=== PATIENT | female | born 1965 | race Caucasian/White ===

== ENCOUNTER 2023-12-16 11:46 | Inpatient (IN) | payer MEDICAID ==
[2023-12-16 13:35] LABS: BASOPHILS ABSOLUTE AUTO 0.1 K/mm3 (0.0-0.2); BASOPHILS PERCENT AUTO 1.4 % (0.0-1.0); EOSINOPHILS PERCENT AUTO 0.6 % (0.0-6.0); IMMATURE GRAN ABSOLUTE AUTO 0.01 K/mm3 (0.00-0.05); IMMATURE GRAN PERCENT AUTO 0.2 % (0.0-0.4); LYMPHOCYTES ABSOLUTE AUTO 1.4 K/mm3 (1.0-4.8); LYMPHOCYTES PERCENT AUTO 22.1 % (24.0-44.0); MEAN CORPUSCULAR HGB CONC 28.3 g/dl (32.0-36.0); MEAN CORPUSCULAR VOLUME 74.1 fl (83.0-99.0); MEAN PLATELET VOLUME 9.2 fl (9.4-12.3); MONOCYTES ABSOLUTE AUTO 0.8 K/mm3 (0.0-0.8); MONOCYTES PERCENT AUTO 12.4 % (0.0-8.0); NEUTROPHILS PERCENT AUTO 63.3 % (41.0-71.0); PLATELET COUNT,PLT 389 K/mm3 (150-400); RED BLOOD CELL COUNT 3.24 M/mm3 (4.10-5.30); WHITE BLOOD CELL COUNT,WBC 6.28 K/mm3 (3.9-11.3)
[2023-12-16 13:38] LABS: HEMOGLOBIN 6.8 gm/dl (12.0-16.0)
[2023-12-16] MEDS: LORazepam 2 MG/ML SDV IVPUSH ONE ×3 (13:53→14:20)
[2023-12-16] MEDS: Sodium Chloride 0.9% 1,000 ML IV STA (13:53)
[2023-12-16 13:56] LABS: ALBUMIN 3.8 g/dl (3.4-5.0); BILIRUBIN TOTAL 0.6 mg/dL (0.2-1.0); BUN/CREATININE RATIO 17.5 (14-18); CALCIUM 9.8 mg/dL (8.5-10.1); CREATININE 0.8 mg/dL (0.55-1.02); EST CRCL DRUG DOSING (CG) 70.66 mL/min; PROTEIN TOTAL,TP 7.8 g/dl (6.4-8.2)
[2023-12-16] MEDS ORDERED: Pantoprazole 40 MG Vial IVPUSH ONE (14:05)
[2023-12-16 14:08] LABS: SLIDE REVIEW ABNORMAL SMEAR
[2023-12-16] MEDS ORDERED: Ondansetron 4 MG/2 ML SDV IV PRN (14:14)
[2023-12-16] MEDS: Pantoprazole 40 MG Vial IVPUSH ONE (14:15)
[2023-12-16] MEDS: Potassium Chloride 20 MEQ Tab.ER PO ONE (14:16)
[2023-12-16 14:34] LABS: INR 1.02; PROTHROMBIN TIME 10.8 SECONDS (9.7-12.0)
[2023-12-16 14:35] LABS: PTT,PARTIAL THROMBOPLSTIN TIME 21.7 SECONDS (21.7-31.4)
[2023-12-16] MEDS: LORazepam 2 MG/ML SDV IV PRN ×2 (15:57→19:38)
[2023-12-16 17:46] LABS: HEMATOCRIT 24.7 % (37.0-47.0)
[2023-12-16 17:51] LABS: HEMOGLOBIN 6.9 gm/dl (12.0-16.0)
[2023-12-16] MEDS: Folic Acid 1 MG Tab PO SCH (18:58)
[2023-12-16] MEDS: Multivitamin Tab PO SCH (18:58)
[2023-12-16] MEDS: Thiamine 100 MG Tab PO SCH (18:58)
[2023-12-16] MEDS: Sodium Chloride 0.9% 1,000 ML IV SCH (19:29)
[2023-12-16] MEDS: Pantoprazole 40 MG in Sodium Chloride 0.9% 100 ML IV ONE (19:29)
[2023-12-16 21:12] LABS: APPEARANCE,URINE CLEAR (Clear); BILIRUBIN,URINE NEGATIVE (Negative); COLOR,URINE YELLOW (Yellow); GLUCOSE,URINE NEGATIVE (Negative); KETONES,URINE 1+ (Negative); LEUKOCYTE ESTERASE,URINE 1+ (Negative); NITRITE,URINE NEGATIVE (Negative); OCCULT BLOOD,URINE NEGATIVE (Negative); PH,URINE 7.5 (5.0-8.0); PROTEIN,URINE NEGATIVE (Negative); UROBILINOGEN,URINE 0.2 (0.2-1.0)
[2023-12-16 21:22] LABS: BARBITURATE SCREEN,URINE NEGATIVE (CUTOFF=200); BENZODIAZEPINES SCREEN,URINE PRESUMPTIVE POSITIVE (CUTOFF=150); BUPRENORPHINE SCREEN,URINE NEGATIVE (CUTOFF=10); METHADONE SCREEN, URINE NEGATIVE (CUTOFF=200); METHAMPHETAMINES SCREEN, URINE NEGATIVE (CUTOFF=500); OXYCODONE SCREEN,URINE NEGATIVE (CUT0FF=100); THC SCREEN,URINE 20 NG/ML NEGATIVE (CUTOFF=50)
[2023-12-16 21:24] LABS: AMPHETAMINES SCREEN, URINE NEGATIVE (CUTOFF=500)
[2023-12-16 21:34] LABS: BACTERIA,URINE MODERATE /hpf (FEW); MUCUS,URINE FEW /hpf (FEW); RBC,URINE 0-5 /hpf (0-5)
[2023-12-16 21:35] LABS: AMORPHOUS SEDIMENT,URINE FEW /hpf (NOT SEEN)
[2023-12-16 23:06] LABS: HEMATOCRIT 25.4 % (37.0-47.0)
[2023-12-16 23:25] LABS: HEMOGLOBIN 7.1 gm/dl (12.0-16.0)
[2023-12-17 04:37] LABS: BASOPHILS ABSOLUTE AUTO 0.1 K/mm3 (0.0-0.2); EOSINOPHILS ABSOLUTE AUTO 0.1 K/mm3 (0.0-0.4); HEMATOCRIT 23.9 % (37.0-47.0); IMMATURE GRAN ABSOLUTE AUTO 0.01 K/mm3 (0.00-0.05); IMMATURE GRAN PERCENT AUTO 0.2 % (0.0-0.4); LYMPHOCYTES ABSOLUTE AUTO 1.2 K/mm3 (1.0-4.8); LYMPHOCYTES PERCENT AUTO 25.2 % (24.0-44.0); MEAN CORPUSCULAR HGB CONC 27.6 g/dl (32.0-36.0); MEAN CORPUSCULAR VOLUME 76.1 fl (83.0-99.0); MEAN PLATELET VOLUME 9.3 fl (9.4-12.3); MONOCYTES ABSOLUTE AUTO 0.6 K/mm3 (0.0-0.8); MONOCYTES PERCENT AUTO 12.7 % (0.0-8.0); NEUTROPHILS ABSOLUTE AUTO 2.9 K/mm3 (1.8-7.7); NEUTROPHILS PERCENT AUTO 58.9 % (41.0-71.0); PLATELET COUNT,PLT 400 K/mm3 (150-400); RED BLOOD CELL COUNT 3.14 M/mm3 (4.10-5.30); WHITE BLOOD CELL COUNT,WBC 4.89 K/mm3 (3.9-11.3)
[2023-12-17 05:04] LABS: HEMOGLOBIN 6.6 gm/dl (12.0-16.0)
[2023-12-17 05:12] LABS: A/G RATIO 0.9 (1-2); ALBUMIN 3.2 g/dl (3.4-5.0); ANION GAP 16.2 (5-15); BILIRUBIN TOTAL 0.6 mg/dL (0.2-1.0); CALCIUM 8.9 mg/dL (8.5-10.1); CREATININE 0.5 mg/dL (0.55-1.02); EST CRCL DRUG DOSING (CG) 113.05 mL/min; POTASSIUM,K 3.2 mEq/L (3.5-5.1); PROTEIN TOTAL,TP 6.9 g/dl (6.4-8.2)
[2023-12-17 05:35] LABS: SLIDE REVIEW ABNORMAL SMEAR
[2023-12-17] MEDS: Pantoprazole 40 MG Vial IVPUSH SCH (09:36)
[2023-12-17] MEDS: Potassium Chloride 20 MEQ Tab.ER PO ONE (09:36)
[2023-12-17] MEDS: Acetaminophen 325 MG Tab PO PRN (20:36)
[2023-12-18] MEDS: Sodium Chloride 0.9% 250 ML ONE (01:17)
[2023-12-18 07:14] LABS: BASOPHILS ABSOLUTE AUTO 0.1 K/mm3 (0.0-0.2); BASOPHILS PERCENT AUTO 0.8 % (0.0-1.0); EOSINOPHILS ABSOLUTE AUTO 0.2 K/mm3 (0.0-0.4); EOSINOPHILS PERCENT AUTO 2.6 % (0.0-6.0); HEMATOCRIT 27.4 % (37.0-47.0); HEMOGLOBIN 7.8 gm/dl (12.0-16.0); IMMATURE GRAN ABSOLUTE AUTO 0.01 K/mm3 (0.00-0.05); IMMATURE GRAN PERCENT AUTO 0.2 % (0.0-0.4); LYMPHOCYTES ABSOLUTE AUTO 1.3 K/mm3 (1.0-4.8); LYMPHOCYTES PERCENT AUTO 22.1 % (24.0-44.0); MEAN CORPUSCULAR HEMOGLOBIN 21.7 pg (28.0-32.0); MEAN CORPUSCULAR HGB CONC 28.5 g/dl (32.0-36.0); MEAN CORPUSCULAR VOLUME 76.1 fl (83.0-99.0); MEAN PLATELET VOLUME 9.3 fl (9.4-12.3); MONOCYTES ABSOLUTE AUTO 0.8 K/mm3 (0.0-0.8); MONOCYTES PERCENT AUTO 12.4 % (0.0-8.0); NEUTROPHILS ABSOLUTE AUTO 3.7 K/mm3 (1.8-7.7); NEUTROPHILS PERCENT AUTO 61.9 % (41.0-71.0); PLATELET COUNT,PLT 345 K/mm3 (150-400); WHITE BLOOD CELL COUNT,WBC 6.05 K/mm3 (3.9-11.3)
[2023-12-18 07:43] LABS: A/G RATIO 0.8 (1-2); ALBUMIN 3.1 g/dl (3.4-5.0); ANION GAP 16.3 (5-15); BILIRUBIN TOTAL 0.5 mg/dL (0.2-1.0); CALCIUM 9.3 mg/dL (8.5-10.1); CREATININE 0.5 mg/dL (0.55-1.02); EST CRCL DRUG DOSING (CG) 113.05 mL/min; POTASSIUM,K 3.3 mEq/L (3.5-5.1)
[2023-12-18] MEDS: Potassium Chloride 20 MEQ Tab.ER PO ONE (09:22)
[2023-12-18] MEDS: Magnesium Sulfate/Water Premix 2 GM/50 ML BAG IV ONE (11:53)
[2023-12-18] MEDS: hydrOXYzine HCl 50 MG Tab PO PRN (15:30)
[2023-12-18 16:42] LABS: HEMOGLOBIN 7.9 gm/dl (12.0-16.0)
[2023-12-18] MEDS: amLODIPine 2.5 MG Tab PO SCH (17:30)
[2023-12-18] MEDS: Polyethylene Glycol/Electrolytes 4,000 ML Bottle PO SCH (20:15)
[2023-12-18] MEDS: Polyethylene Glycol/Electrolytes 4,000 ML Bottle PO ONE (22:26)
[2023-12-19 05:42] LABS: BASOPHILS ABSOLUTE AUTO 0.1 K/mm3 (0.0-0.2); BASOPHILS PERCENT AUTO 1.1 % (0.0-1.0); EOSINOPHILS ABSOLUTE AUTO 0.2 K/mm3 (0.0-0.4); EOSINOPHILS PERCENT AUTO 2.7 % (0.0-6.0); HEMATOCRIT 27.7 % (37.0-47.0); HEMOGLOBIN 7.9 gm/dl (12.0-16.0); IMMATURE GRAN ABSOLUTE AUTO 0.01 K/mm3 (0.00-0.05); IMMATURE GRAN PERCENT AUTO 0.2 % (0.0-0.4); LYMPHOCYTES ABSOLUTE AUTO 1.6 K/mm3 (1.0-4.8); LYMPHOCYTES PERCENT AUTO 23.8 % (24.0-44.0); MEAN CORPUSCULAR HEMOGLOBIN 21.2 pg (28.0-32.0); MEAN CORPUSCULAR HGB CONC 28.5 g/dl (32.0-36.0); MEAN CORPUSCULAR VOLUME 74.3 fl (83.0-99.0); MEAN PLATELET VOLUME 9.3 fl (9.4-12.3); MONOCYTES ABSOLUTE AUTO 0.8 K/mm3 (0.0-0.8); MONOCYTES PERCENT AUTO 11.5 % (0.0-8.0); NEUTROPHILS PERCENT AUTO 60.7 % (41.0-71.0); PLATELET COUNT,PLT 358 K/mm3 (150-400); RED BLOOD CELL COUNT 3.73 M/mm3 (4.10-5.30); WHITE BLOOD CELL COUNT,WBC 6.63 K/mm3 (3.9-11.3)
[2023-12-19] MEDS: Sodium Chloride 0.9% 10 ML Syringe FLUSH SCH (05:56)
[2023-12-19] MEDS: Lactated Ringers 1,000 ML IV SCH (05:56)
[2023-12-19] MEDS ORDERED: Sodium Chloride 0.9% 10 ML Syringe FLUSH PRN (06:00)
[2023-12-19 06:05] LABS: A/G RATIO 0.9 (1-2); ALBUMIN 3.3 g/dl (3.4-5.0); ANION GAP 14.6 (5-15); BILIRUBIN TOTAL 0.5 mg/dL (0.2-1.0); CALCIUM 9.1 mg/dL (8.5-10.1); CREATININE 0.5 mg/dL (0.55-1.02); EST CRCL DRUG DOSING (CG) 113.05 mL/min; POTASSIUM,K 3.6 mEq/L (3.5-5.1); PROTEIN TOTAL,TP 7.2 g/dl (6.4-8.2)
[2023-12-19 06:21] LABS: SLIDE REVIEW ABNORMAL SMEAR
[2023-12-19] MEDS ORDERED: Propofol 200 MG/20 ML SDV ONE ×2 (07:37→07:57)
[2023-12-19] MEDS ORDERED: Lidocaine 1% 4 ML ONE (07:38)
[2023-12-19] MEDS ORDERED: dexmedeTOMIDine HCl 200 MCG/2 ML SDV ONE (07:38)
[2023-12-19] MEDS ORDERED: Midazolam 1 MG/ML 2 ML SDV ONE (07:41)
[2023-12-19] MEDS ORDERED: Albuterol/Ipratropium 3.0-0.5 MG/3 ML Neb Soln NEB PRN (09:20)
[2023-12-19] MEDS: Albuterol/Ipratropium 3.0-0.5 MG/3 ML Neb Soln ONE (09:26)
[2023-12-19] MEDS: Citalopram 20 MG Tab PO SCH (12:00)
[2023-12-19 13:26] LABS: HEMATOCRIT 30.7 % (37.0-47.0); HEMOGLOBIN 8.7 gm/dl (12.0-16.0)
[2023-12-19 13:58] LABS: FERRITIN 18 ng/ml (8-252); IRON,FE 21 ug/dL (50-170); PERCENT FE SATURATION 4 % (20-55); TRANSFERRIN 381 mg/dL (202-364)
[2023-12-19 14:00] LABS: TOTAL IRON BINDING CAPACITY 476 ug/dL (100-400)
[2023-12-19] MEDS: chlordiazePOXIDE 25 MG Cap PO SCH (14:30)
[2023-12-19] MEDS: Sodium Ferric Gluconate Cmplex 125 MG in Sodium Chloride 0.9% 100 ML IV ONE (14:45)
[2023-12-19] MEDS: PHENobarbitaL sodium 260 MG in Sodium Chloride 0.9% 100 ML IV ONE (19:13)
[2023-12-19] MEDS: Cefepime 2 GM in Sodium Chloride 0.9% 50 ML IV SCH (19:59)
[2023-12-19] MEDS: Doxycycline 100 MG in Sodium Chloride 0.9% 100 ML IV SCH (19:59)
[2023-12-20 05:28] LABS: BASOPHILS ABSOLUTE AUTO 0.1 K/mm3 (0.0-0.2); BASOPHILS PERCENT AUTO 0.5 % (0.0-1.0); EOSINOPHILS ABSOLUTE AUTO 0.1 K/mm3 (0.0-0.4); EOSINOPHILS PERCENT AUTO 0.5 % (0.0-6.0); HEMATOCRIT 27.8 % (37.0-47.0); HEMOGLOBIN 8.2 gm/dl (12.0-16.0); IMMATURE GRAN ABSOLUTE AUTO 0.14 K/mm3 (0.00-0.05); IMMATURE GRAN PERCENT AUTO 0.8 % (0.0-0.4); LYMPHOCYTES ABSOLUTE AUTO 1.8 K/mm3 (1.0-4.8); LYMPHOCYTES PERCENT AUTO 10.3 % (24.0-44.0); MEAN CORPUSCULAR HEMOGLOBIN 21.9 pg (28.0-32.0); MEAN CORPUSCULAR HGB CONC 29.5 g/dl (32.0-36.0); MEAN CORPUSCULAR VOLUME 74.3 fl (83.0-99.0); MEAN PLATELET VOLUME 9.7 fl (9.4-12.3); MONOCYTES ABSOLUTE AUTO 1.1 K/mm3 (0.0-0.8); MONOCYTES PERCENT AUTO 6.3 % (0.0-8.0); NEUTROPHILS PERCENT AUTO 81.6 % (41.0-71.0); PLATELET COUNT,PLT 345 K/mm3 (150-400); RED BLOOD CELL COUNT 3.74 M/mm3 (4.10-5.30); WHITE BLOOD CELL COUNT,WBC 17.12 K/mm3 (3.9-11.3)
[2023-12-20 05:58] LABS: A/G RATIO 0.7 (1-2); ANION GAP 15.3 (5-15); BILIRUBIN TOTAL 0.8 mg/dL (0.2-1.0); BUN/CREATININE RATIO 18.3 (14-18); C-REACTIVE PROTEIN 11.63 mg/dL (<0.30); CALCIUM 9.6 mg/dL (8.5-10.1); CREATININE 0.6 mg/dL (0.55-1.02); EST CRCL DRUG DOSING (CG) 94.21 mL/min; POTASSIUM,K 3.3 mEq/L (3.5-5.1); PROTEIN TOTAL,TP 7.3 g/dl (6.4-8.2)
[2023-12-20] MEDS ORDERED: Sodium Chloride 0.9% 10 ML Syringe FLUSH PRN (07:22)
[2023-12-20 08:22] LABS: LACTIC ACID 0.5 mmol/L (0.4-2.0)
[2023-12-20 08:23] LABS: INR 1.13; PROTHROMBIN TIME 11.9 SECONDS (9.7-12.0)
[2023-12-20 08:30] LABS: O2 SATURATION ARTERIAL 92.6 % (96.0-97.0); PCO2 ARTERIAL 37.1 mmHg (35.0-45.0)
[2023-12-20 08:31] LABS: BICARBONATE,ARTERIAL 22.1 meq/L (22.0-26.0)
[2023-12-20] MEDS: Sodium Chloride 0.9% 1,000 ML ONE (09:52)
[2023-12-21 05:27] LABS: BASOPHILS ABSOLUTE AUTO 0.1 K/mm3 (0.0-0.2); BASOPHILS PERCENT AUTO 0.6 % (0.0-1.0); EOSINOPHILS ABSOLUTE AUTO 0.2 K/mm3 (0.0-0.4); EOSINOPHILS PERCENT AUTO 2.7 % (0.0-6.0); HEMATOCRIT 27.2 % (37.0-47.0); HEMOGLOBIN 7.9 gm/dl (12.0-16.0); IMMATURE GRAN ABSOLUTE AUTO 0.04 K/mm3 (0.00-0.05); IMMATURE GRAN PERCENT AUTO 0.5 % (0.0-0.4); LYMPHOCYTES ABSOLUTE AUTO 1.4 K/mm3 (1.0-4.8); LYMPHOCYTES PERCENT AUTO 16.6 % (24.0-44.0); MEAN CORPUSCULAR HEMOGLOBIN 21.9 pg (28.0-32.0); MEAN CORPUSCULAR VOLUME 75.6 fl (83.0-99.0); MEAN PLATELET VOLUME 9.9 fl (9.4-12.3); MONOCYTES ABSOLUTE AUTO 0.9 K/mm3 (0.0-0.8); MONOCYTES PERCENT AUTO 10.8 % (0.0-8.0); NEUTROPHILS ABSOLUTE AUTO 5.9 K/mm3 (1.8-7.7); NEUTROPHILS PERCENT AUTO 68.8 % (41.0-71.0); PLATELET COUNT,PLT 338 K/mm3 (150-400); WHITE BLOOD CELL COUNT,WBC 8.55 K/mm3 (3.9-11.3)
[2023-12-21 05:38] LABS: A/G RATIO 0.7 (1-2); ALBUMIN 2.8 g/dl (3.4-5.0); BILIRUBIN TOTAL 0.5 mg/dL (0.2-1.0); BUN/CREATININE RATIO 23.3 (14-18); C-REACTIVE PROTEIN 8.8 mg/dL (<0.30); CALCIUM 9.3 mg/dL (8.5-10.1); CREATININE 0.6 mg/dL (0.55-1.02); EST CRCL DRUG DOSING (CG) 94.21 mL/min; PROTEIN TOTAL,TP 7.1 g/dl (6.4-8.2)
[2023-12-21] MEDS: Potassium Chloride 10 MEQ in Premix Bag 1 BAG IV SCH (07:37)
[2023-12-21 08:42] LABS: APPEARANCE,URINE CLEAR (Clear); BILIRUBIN,URINE NEGATIVE (Negative); COLOR,URINE YELLOW (Yellow); GLUCOSE,URINE NEGATIVE (Negative); KETONES,URINE TRACE (Negative); LEUKOCYTE ESTERASE,URINE NEGATIVE (Negative); NITRITE,URINE NEGATIVE (Negative); OCCULT BLOOD,URINE NEGATIVE (Negative); PH,URINE 5.5 (5.0-8.0); PROTEIN,URINE TRACE (Negative); UROBILINOGEN,URINE 0.2 (0.2-1.0)
[2023-12-21 08:47] LABS: BACTERIA,URINE FEW /hpf (FEW); EPITHELIAL CELLS,URINE 0-5 /hpf (0-5); MUCUS,URINE RARE /hpf (FEW); RBC,URINE 0-5 /hpf (0-5); WBC,URINE 0-5 /hpf (0-5)
[2023-12-21] MEDS: Magnesium Sulfate/D5W 1 GM/100 ML BAG IV ONE (09:26)
[2023-12-21] MEDS: Potassium Chloride 20 MEQ Tab.ER PO SCH (09:34)
[2023-12-21] MEDS: Pantoprazole 40 MG Tab.CR PO SCH (12:09)
[2023-12-22 04:28] LABS: HEMATOCRIT 26.5 % (37.0-47.0); HEMOGLOBIN 7.6 gm/dl (12.0-16.0); MEAN CORPUSCULAR HEMOGLOBIN 21.3 pg (28.0-32.0); MEAN CORPUSCULAR HGB CONC 28.7 g/dl (32.0-36.0); MEAN CORPUSCULAR VOLUME 74.4 fl (83.0-99.0); PLATELET COUNT,PLT 340 K/mm3 (150-400); RED BLOOD CELL COUNT 3.56 M/mm3 (4.10-5.30); WHITE BLOOD CELL COUNT,WBC 6.78 K/mm3 (3.9-11.3)
[2023-12-22 05:04] LABS: ANION GAP 13.4 (5-15); CALCIUM 9.3 mg/dL (8.5-10.1); CREATININE 0.5 mg/dL (0.55-1.02); EST CRCL DRUG DOSING (CG) 113.05 mL/min; MAGNESIUM 1.7 mg/dL (1.8-2.4); POTASSIUM,K 3.4 mEq/L (3.5-5.1)
[2023-12-22] MEDS ORDERED: Magnesium Sulfate (4.06 MEQ/ML) 5 GM/10 ML SDV IV ONE (06:30)
[2023-12-22] MEDS: Magnesium Sulfate/Water Premix 2 GM in Premix Bag 1 BAG IV ONE (07:55)
== END 2023-12-22 13:04 | disposition home or self-care (01) | DRG 896 ==
LOC: JD.ED 11:46 → JD.ICU 14:14
PROVIDERS: ADMIT Family Medicine; ATTEND Internal Medicine
PROC: 30233N1 Transfusion of Nonautologous Red Blood Cells into Peripheral Vein, Percutaneous Approach (ICD-10-PCS; 2023-12-18)
PROC: 0DJ08ZZ Inspection of Upper Intestinal Tract, Via Natural or Artificial Opening Endoscopic (ICD-10-PCS; principal; 2023-12-19 08:00)
PROC: 0DJD8ZZ Inspection of Lower Intestinal Tract, Via Natural or Artificial Opening Endoscopic (ICD-10-PCS; 2023-12-19 08:00)
PROC: 4A033R1 Measurement of Arterial Saturation, Peripheral, Percutaneous Approach (ICD-10-PCS; 2023-12-20)
PROC: 5A09357 Assistance with Respiratory Ventilation, Less than 24 Consecutive Hours, Continuous Positive Airway Pressure (ICD-10-PCS; 2023-12-20)
PROC: 3E03329 Introduction of Other Anti-infective into Peripheral Vein, Percutaneous Approach (ICD-10-PCS; 2023-12-21)
DX: F10.131 Alcohol abuse with withdrawal delirium (principal); A41.89 Other specified sepsis; J96.01 Acute respiratory failure with hypoxia; J69.0 Pneumonitis due to inhalation of food and vomit; K92.1 Melena; E87.1 Hypo-osmolality and hyponatremia; D62 Acute posthemorrhagic anemia; J95.89 Other postprocedural complications and disorders of respiratory system, not elsewhere classified; J98.11 Atelectasis; I10 Essential (primary) hypertension; F41.9 Anxiety disorder, unspecified; F32.A Depression, unspecified; E87.6 Hypokalemia; K44.9 Diaphragmatic hernia without obstruction or gangrene; E87.8 Other disorders of electrolyte and fluid balance, not elsewhere classified; E86.0 Dehydration; D50.9 Iron deficiency anemia, unspecified; Z88.8 Allergy status to other drugs, medicaments and biological substances; Z88.1 Allergy status to other antibiotic agents; Z79.899 Other long term (current) drug therapy; Z90.49 Acquired absence of other specified parts of digestive tract
CPT/HCPCS: 00813; 36415; 36430; 36600; 71045; 71045-26; 80048; 80053; 80306; 81001; 82140; 82728; 82803; 83540; 83605; 83735; 84100; 84466; 85014; 85018; 85025; 85027; 85610; 85730; 86140; 86850; 86870; 86900; 86901; 86905; 86922; 87040; 87086; 94660; 94761; 94762; 96374; 99140; 99283; 99285-25; A9270-GY; J0692; J2060; J2250; J2470; J2560; J2704; J2916; J3475; J3480; J3490; J7030; J7050; J7120; J7620-GY; P9016; U0002